=== PATIENT | female | born 1945 | race Caucasian/White ===

== ENCOUNTER 2021-04-18 11:34 | Inpatient (IN) | payer MEDICARE, OTHER ==
[~2021-04-18] VITALS: Ht 157.5 cm; Wt 66.7 kg
[2021-04-18 12:54] LABS: BASOPHILS % (AUTO) 0.5 % (0.0-5.0); EOSINOPHILS % (AUTO) 1.2 % (0.0-8.0); HEMATOCRIT 44.4 % (36-48); LYMPHOCYTES % (AUTO) 37.1 % (21.0-51.0); MEAN CORPUSCULAR HGB CONC 32.9 g/dL (32.0-36.0); MEAN CORPUSCULAR VOLUME 88.3 fL (79-99); MONOCYTES % (AUTO) 6.9 % (3.0-13.0); PLATELET COUNT (AUTO) 315 K/uL (130-400); RED BLOOD CELL COUNT(AUTO) 5.03 MIL/uL (4.00-5.50); RED CELL DISTRIBUTION WIDTH 14.1 % (11.0-15.5); WHITE BLOOD COUNT (AUTO) 7.8 K/uL (4.8-10.8)
[2021-04-18 13:00] LABS: CREATININE 0.7 mg/dL (0.5-1.5); POTASSIUM 3.5 mmol/L (3.5-5.1)
[2021-04-18 13:05] LABS: ALBUMIN 3.8 g/dL (3.5-5.0); BILIRUBIN,TOTAL 0.6 mg/dL (0.2-1.0); TOTAL PROTEIN, SERUM 7.2 g/dL (6.0-8.3)
[2021-04-18] MEDS ORDERED: CEFTRIAXONE 1G VIAL IVP ONE (14:00)
[2021-04-18] MEDS: 0.9%NACL 1000ML 1,000 ML IV SCH ×2 (15:09→20:40)
[2021-04-18] MEDS ORDERED: CEFTRIAXONE 1G VIAL ONE (15:10)
[2021-04-18] MEDS ORDERED: ONDANSETRON 4MG INJ IVP PRN (19:00)
[2021-04-18] MEDS ORDERED: ACETAMINOPHEN 325 MG TAB PO PRN (19:00)
[2021-04-18 22:00] VITALS: BP 101/55
[2021-04-18 23:26] VITALS: BP 105/59
[2021-04-19] MEDS: 0.9%NACL 1000ML 1,000 ML IV SCH ×5 (03:20→16:44)
[2021-04-19 03:41] VITALS: BP 100/56
[2021-04-19 04:16] LABS: BASOPHILS % (AUTO) 0.5 % (0.0-5.0); EOSINOPHILS % (AUTO) 1.9 % (0.0-8.0); HEMATOCRIT 42.3 % (36-48); LYMPHOCYTES % (AUTO) 41.4 % (21.0-51.0); MEAN CORPUSCULAR HEMOGLOBIN 29.2 pg (27.0-33.0); MEAN CORPUSCULAR HGB CONC 33.1 g/dL (32.0-36.0); MEAN CORPUSCULAR VOLUME 88.3 fL (79-99); MONOCYTES % (AUTO) 6.7 % (3.0-13.0); NEUTROPHILS % (AUTO) 49.3 % (40.0-77.0); PLATELET COUNT (AUTO) 309 K/uL (130-400); RED BLOOD CELL COUNT(AUTO) 4.79 MIL/uL (4.00-5.50); RED CELL DISTRIBUTION WIDTH 14.1 % (11.0-15.5); WHITE BLOOD COUNT (AUTO) 8.6 K/uL (4.8-10.8)
[2021-04-19 04:35] LABS: CREATININE 0.7 mg/dL (0.5-1.5); MAGNESIUM 1.9 mg/dL (1.80-2.40); POTASSIUM 3.4 mmol/L (3.5-5.1)
[2021-04-19 08:00] VITALS: BP 107/56
[2021-04-19] MEDS: DEXTROSE 5 % AND 0.9 % NACL 1,000 ML IV SCH ×2 (08:20→16:00)
[2021-04-19] MEDS: ENOXAPARIN SODIUM 30 MG/0.3 ML SQ SCH (09:00)
[2021-04-19 12:00] VITALS: BP 119/84
[2021-04-19 15:43] LABS: PARTIAL THROMBOPLASTIN TIME 52.8 SEC (26.3-35.5)
[2021-04-19 15:55] LABS: INR > 7.00 (0.85-1.15); PROTHROMBIN TIME > 90.0 SEC (9.6-11.6)
[2021-04-19 16:00] VITALS: BP 122/69
[2021-04-19 16:33] LABS: INR 1.01 (0.85-1.15)
[2021-04-19 16:35] LABS: PARTIAL THROMBOPLASTIN TIME 26.8 SEC (26.3-35.5)
[2021-04-19] MEDS: CEFTRIAXONE 1G VIAL IVP SCH (16:42)
[2021-04-19] MEDS ORDERED: MAGNESIUM 2GM PREMIX 50ML 50 ML IV PRN (18:00)
[2021-04-19] MEDS ORDERED: LIDOCAINE HCL-MPF 1% 2ML VIAL IV PRN ×2 (18:30)
[2021-04-19] MEDS ORDERED: KCL 20 MEQ ERTAB PO PRN (18:30)
[2021-04-19] MEDS ORDERED: POTASSIUM CHLORIDE 20MEQ/100ML 100 ML IV PRN ×2 (18:30)
[2021-04-19 20:24] VITALS: BP 103/52
[2021-04-19] MEDS: POTASSIUM CHLORIDE 10% ELIXIR 20 MEQ/15 ML UDCUP PO PRN (20:42)
[2021-04-19] MEDS ORDERED: MULT-264 PO (23:36)
[2021-04-19] MEDS ORDERED: PROP10DR2 OP (23:36)
[2021-04-19] MEDS ORDERED: CITA-106 PO (23:36)
[2021-04-20 00:28] VITALS: BP 108/62
[2021-04-20 04:32] VITALS: BP 98/60
[2021-04-20 04:54] LABS: CREATININE 0.7 mg/dL (0.5-1.5); MAGNESIUM 1.8 mg/dL (1.80-2.40); POTASSIUM 3.2 mmol/L (3.5-5.1)
[2021-04-20] MEDS: DEXTROSE 5 % AND 0.9 % NACL 1,000 ML IV SCH ×2 (05:17→11:00)
[2021-04-20] MEDS: POTASSIUM CHLORIDE 10% ELIXIR 20 MEQ/15 ML UDCUP PO PRN ×3 (05:19→12:24)
[2021-04-20 08:00] VITALS: BP 107/65
[2021-04-20] MEDS: ENOXAPARIN SODIUM 30 MG/0.3 ML SQ SCH (09:00)
[2021-04-20 12:00] VITALS: BP 134/63
[2021-04-20 16:00] VITALS: BP 132/70
[2021-04-20] MEDS: 0.9%NACL 1000ML 1,000 ML IV SCH ×2 (19:20→20:04)
[2021-04-20] MEDS: CEFTRIAXONE 1G VIAL IVP SCH (20:04)
[2021-04-20 20:16] VITALS: BP 110/59
[2021-04-21] VITALS (7 sets, daily range): BP systolic 117–135; BP diastolic 46–75
[2021-04-21] MEDS: DEXTROSE 5 % AND 0.9 % NACL 1,000 ML IV SCH ×2 (00:20→01:37)
[2021-04-21] MEDS: 0.9%NACL 1000ML 1,000 ML IV SCH ×3 (02:00→14:55)
[2021-04-21 05:00] LABS: MAGNESIUM 1.8 mg/dL (1.80-2.40); POTASSIUM 3.6 mmol/L (3.5-5.1)
[2021-04-21] MEDS: POTASSIUM CHLORIDE 10% ELIXIR 20 MEQ/15 ML UDCUP PO PRN ×2 (06:07→17:41)
[2021-04-21] MEDS: ENOXAPARIN SODIUM 30 MG/0.3 ML SQ SCH (09:04)
[2021-04-21] MEDS: CEFTRIAXONE 1G VIAL IVP SCH (14:32)
[2021-04-21] MEDS ORDERED: BALSAM PERU/CASTOR OIL 60 GM TUBE TP SCH (21:00)
[2021-04-22 03:41] VITALS: BP 113/60
[2021-04-22] MEDS: DEXTROSE 5 % AND 0.9 % NACL 1,000 ML IV SCH (04:06)
[2021-04-22 04:51] LABS: POTASSIUM 3.3 mmol/L (3.5-5.1)
[2021-04-22 06:33] LABS: HEMATOCRIT 40.9 % (36-48); MEAN CORPUSCULAR HEMOGLOBIN 29.6 pg (27.0-33.0); MEAN CORPUSCULAR HGB CONC 33.3 g/dL (32.0-36.0); MEAN CORPUSCULAR VOLUME 88.9 fL (79-99); RED BLOOD CELL COUNT(AUTO) 4.6 MIL/uL (4.00-5.50); RED CELL DISTRIBUTION WIDTH 14.1 % (11.0-15.5); WHITE BLOOD COUNT (AUTO) 8.7 K/uL (4.8-10.8)
[2021-04-22 06:40] LABS: CREATININE 0.7 mg/dL (0.5-1.5)
[2021-04-22 08:30] VITALS: BP 113/66
[2021-04-22 11:56] VITALS: BP 117/78
== END 2021-04-22 14:35 | DRG 690 ==
LOC: EDH 11:34 → OBSVTOIN 11:35 → EDHIP 11:35 → 3BH 20:29
PROVIDERS: ADMIT Internal Medicine Infectious Disease; ATTEND Internal Medicine Infectious Disease
PROC: 05HF33Z Insertion of Infusion Device into Left Cephalic Vein, Percutaneous Approach (ICD-10-PCS; principal; 2021-04-20)
DX: N39.0 Urinary tract infection, site not specified (principal); I69.351 Hemiplegia and hemiparesis following cerebral infarction affecting right dominant side; G93.49 Other encephalopathy; E78.5 Hyperlipidemia, unspecified; M19.90 Unspecified osteoarthritis, unspecified site; F32.A Depression, unspecified; F03.90 Unspecified dementia, unspecified severity, without behavioral disturbance, psychotic disturbance, mood disturbance, and anxiety; Z96.652 Presence of left artificial knee joint; L89.151 Pressure ulcer of sacral region, stage 1; R53.81 Other malaise; I10 Essential (primary) hypertension; R13.10 Dysphagia, unspecified; R62.7 Adult failure to thrive; B96.20 Unspecified Escherichia coli [E. coli] as the cause of diseases classified elsewhere; Z68.26 Body mass index [BMI] 26.0-26.9, adult; Z74.01 Bed confinement status
CPT/HCPCS: 36415; 71045; 80048; 80053; 83735; 84132; 84484; 85025; 85027; 85610; 85730; 86140; 87077; 87088; 87186; 93005; 93971; 99291; C1894; G0378; J0696; J1650; J3475; J7030; J7042